=== PATIENT | female | born 1985 | race Asian ===

== ENCOUNTER 2023-11-06 08:39 | Emergency (ER) | payer OTHER, SELFPAY ==
[2023-11-06 08:40] VITALS: BP 115/76; PULSE 59; RESP 16; TEMP 36.4; O2SAT 98; BMI 23.6
--- NOTE | 2023-11-06 08:44 | ED.VIS.FEGU ---
HPI HPI - Female History of Present Illness Chief Complaint: Vag Bleeding Informant: patient Pain Pain: Positive for Pelvic Pain Onset: Days (4) Context: Gradual Onset Timing: Waxes and wanes Quality: Positive for Cramping Location: RLQ, LLQ and Suprapubic Worsened by: - (Palpation) Relieved by: - (Nothing) Bleeding Issue: Positive for Vaginal bleeding and Passing clots Onset: Days (8) Context: Gradual Onset Timing: Continuous Current Severity: Similar to period Maximum Severity: Similar to period Associated Symptoms Associated Symptoms: Negative for Dysuria or Frequency Narrative Narrative: Patient presents with vaginal bleeding that has been constant for the past 8 days. Patient states that is similar to her normal menstrual period. Patient states she is passing some small clots as well. Patient admits to some cramping over her lower abdomen. Patient states this has been constant for the past 4 days. Patient states her pain is worse with palpation over the lower abdomen. Patient states nothing makes it better. Patient denies any dysuria or frequency. Patient also admits to some breast tenderness. PFSH PFSH Medical History no medical history no medical history Allergy/AdvReac Type Severity Reaction Status Date / Time No Known Allergies Allergy Verified 11/06/23 09:06 Surgical History no surgical history no surgical history Social History Smoking Status: Never smoker ROS ROS ED Constitutional Constitutional ED: Denies chills or fever(s) Eyes Eyes: Denies blurry vision or change in vision ENT ENT ED: Reports rhinorrhea; Denies sore throat Cardiovascular Cardiovascular: Denies chest pain or palpitations Respiratory/Chest Respiratory/Chest: Denies cough or dyspnea Gastrointestinal Gastrointestinal: Reports abdominal pain; Denies nausea or vomiting Genitourinary Genitourinary ED: Denies dysuria or hematuria Musculoskeletal Musculoskeletal: Denies back pain or neck pain Integumentary Denies abscess or rash Neurologic Neurologic: Denies headache(s) or weakness Allergic/Immunologic Allergic/Immunologic ED: Denies mouth swelling or urticaria EXAM Physical Exam Const Vital Signs: 11/06/23 08:40 11/06/23 10:03 Temperature 97.5 F L Temperature Source Temporal Pulse Rate 59 L 65 Respiratory Rate 16 16 Blood Pressure 115/76 94/78 Blood Pressure Mean 89 83 Pulse Ox 98 96 Oxygen Delivery Method Room Air Room Air Positive well nourished and well developed General Appearance ED: well developed and NAD HEENT Reports moist mucous membranes Neck supple and no JVD Chest Wall inspection of chest normal and palpation of chest normal Resp normal respiratory effort and clear to auscultation bilaterally Cardio regular rate and regular rhythm GI soft to palpation and non-distended Palpation: tender LLQ, RLQ and suprapubic; Negative for guarding Neuro oriented x3, CN's II-XII intact bilaterally and no sensory deficits noted Sensorium / Orientation: alert Motor Exam: strength 5/5 throughout MDM MDM MDM Narrative Medical decision making narrative: Differential diagnosis includes , ectopic , dysmenorrhea, urinary tract infection, and anemia. CBC will be obtained to assess for leukocytosis and anemia. Basic metabolic profile will be obtained to assess for electrolyte abnormality and renal function. Urinalysis will be obtained to assess for urinary tract infection and hematuria. Serum hCG will be obtained to assess for . Lab Data Attestation: I reviewed the patient's lab results. Lab results narrative: CBC was reviewed and was within normal limits. Basic metabolic profile was reviewed and was within normal limits. Serum hCG was reviewed and was positive. Quantitative hCG was reviewed and was 158. Labs: Laboratory Results - last 24 hr 11/06/23 09:05 WBC 4.5 RBC 4.28 Hgb 12.4 Hct 38.6 MCV 90.2 MCH 29.0 MCHC 32.1 RDW Std Deviation 38.6 RDW Coeff of Rohan 11.8 Plt Count 247 MPV 9.1 Immature Gran % (Auto) 0.200 Neut % (Auto) 47.2 Lymph % (Auto) 29.6 Starke % (Auto) 6.5 Eos % (Auto) 15.6 H Baso % (Auto) 0.9 Absolute Neuts (auto) 2.1 Absolute Lymphs (auto) 1.33 Nucleated RBC % 0 Sodium 140 Potassium 3.7 Chloride 112 H Carbon Dioxide 25.0 Anion Gap 3 L BUN 16 Creatinine 0.50 L Estim Creat Clear Calc 148.35 Est GFR (MDRD) Af Amer 179 Est GFR (MDRD) Non-Af 148 BUN/Creatinine Ratio 32.3 H Glucose 90 Calcium 8.6 HCG, Quant 158 H Serum , Qual POSITIVE H Radiography Diagnostic Testing: Clinical Impression(s) from Imaging Studies Obstetrics Ultrasound 11/06/23 10:18 IMPRESSION: 1. No demonstrated IUP 2. Unremarkable pelvic structures. Electronically Signed: Jerald Roberts MD at 12:00 EST , Because of the vaginal bleeding and positive test, pelvic ultrasound was obtained to assess for ectopic . There is no demonstrated intrauterine . There is no ectopic noted. Treatment and Re-Evaluation Narrative: Patient was advised of her findings. Patient was advised that she is and very early in the . Patient was instructed to avoid any intercourse, tampons, and douching. Patient was instructed to have complete pelvic rest. Patient was given referral for [facility] follow-up. Patient was instructed to follow-up in 2 days. Patient understood and was agreeable with the plan. All questions were answered. Discharge Plan Triage Chief Complaint: Vag Bleeding ED Provider: Dheeraj Gomez Dx/Rx/DC Orders Clinical Impression: Threatened miscarriage, Threatened miscarriage in early Instructions: Miscarriage Threatened Primary Care Provider: Care Physician,Jacqui Primary Referrals: Candida Collier DO [Med Staff - Active Staff] - 2 Days NOT,DEFINED [Non-Staff] - Disposition Disposition: Home, Self Care
[2023-11-06] MEDS: 0.9% Normal Saline (1000mL) 1,000 ML 1000 ML IV (08:45)
[2023-11-06 09:26] LABS: Anion Gap 3 (5-15); BUN 16 mg/dL (7-18); BUN/Creat Ratio 32.3 RATIO (10-20); Calcium,Total 8.6 mg/dL (8.5-10.1); Chloride 112 mmol/L (98-107); EST Glomerular Filtration Rate 148 mL/min (>60); Est Glom Filt Rate - Afr Amer 179 mL/min (>60); Estimated Creatinine Clearance 148.35 ml/min; Glucose 90 mg/dL (74-106); Potassium 3.7 mmol/L (3.5-5.1); Sodium Level 140 mmol/L (136-145)
--- OUTSIDE RECORDS SUMMARY | 2023-11-06 09:27 | XMS RPT_ITS | CCD ---
Author Name Unknown Address [address] [place] [id number] Organization [facility] Care Team Providers Care Interpretive Program Coordinator Name Role Phone Unavailable Primary Care Provider Unavailabl e SELF, SELF Referring Unavailable JAKY TREVIÑO Attending Unavailable Medications Current Medications Medication Drug Class(es) Dates Sig (Normalized) Sig (Original) fluticasone propionate 0.05 mg/actuat metered dose nasal spray (1 source) Corticosteroid Start: 12-07-2022 fluticasone 50 MCG/ACT Suspension nasal spray Indications: Chronic rhinitis , Hypertrophy of inferior nasal turbinate , Nasal obstruction , Nasal drainage 2 sprays by Nasal route daily. 11.1 mL 11 12/07/2022 Active Problems Problem Classification Problem Date Documented Da te Episodic/Chronic Other upper respiratory disease (1 source) Chronic rhinitis; Translations: [Chronic rhinitis] Chronic Other upper respiratory disease (2 sources) Allergic rhinitis, unspecified; Translations: [Allergic rhinitis, unspecified] Onset: 12-07-2022 Chronic Other upper respiratory disease (1 source) Hypertrophy of nasal turbinates; Translations: [Hypertrophy of nasal turbinates] Episodic Other upper respiratory disease (1 source) Nasal obstruction; Translations: [Other specified disorders of nose and nasal sinuses] Episodic Other upper respiratory disease (1 source) Nasal discharge; Translations: [Other specified disorders of nose and nasal sinuses] Episodic Other upper respiratory disease (1 source) Deviated nasal septum; Translations: [Deviated nasal septum] Episodic Other upper respiratory infections (1 source) Chronic ethmoidal sinusitis; Translations: [Chronic ethmoidal sinusitis] Chronic Results Test Name Value Interpretation Reference Range Facil ity Vital Signs Date Time Vital Sign Value Performing Clinician Faci lity 12-07-2022 12:51-0400 Body height 170 cm Jaky Treviño MD Work Phone: [facility] 12-07-2022 12:51-0400 Body mass index (BMI) [Ratio] 22.6 kg/m2 Jaky Treviño MD Work Phone: [facility] 12-07-2022 12:51-0400 Body weight 65.32 kg Jaky Treviño MD Work Phone: [facility] 12-07-2022 12:51-0400 Heart rate 70 /min Jaky Treviño MD Work Phone: [facility] 12-07-2022 12:51-0400 SaO2% (BldA) [Mass fraction] 99 % Jaky Treviño MD Work Phone: [facility] Encounters Encounter Date Encounter Type Care Provider Facility Start: 12-07-2022 ambulatory SELF SELF Facility:[facility] Start: 12-07-2022 End: 12-07-2022 Office outpatient new 30 minutes Jaky Treviño MD Work Phone: [facility] [place] Plan of Treatment Date Care Activity Detail Author Start: 05-07-2023 Influenza vaccination INFLUENZ A VACCINE (Season Ended) [facility] Start: 01-11-2023 End: 01-11-2023 Patient encounter procedure [facility] [place] Start: 08-01-2021 COVID-19 VACCINE (3 - Booster for Pfizer series) COVID-19 VACCINE (3 - Booster for Pfizer series) [facility] Start: 2006 Screening for malign ant neoplasm of cervix CERVICAL CANCER SCREENING DISCUSSION [facility] Start: 2004 Third diphtheria, tetanus and acellular pertussis (DTaP) vaccination TDAP (ADULT) [facility] Start: 2000 HIV screening HIV SCREENING DISCUSSION [facility] Start: 1985 Hepatitis C screening HEPATITI S C VIRUS SCREENING [facility] Start: 1985 Tetanus vaccination TETANUS [facility] Nasal endoscopy diagnostic uni/bi spx [place] NASAL ENDOSCOPY,DX [place] Charge Routine Chronic rhinitis Hypertrophy of inferior nasal turbinate Nasal obstruction Nasal drainage Chronic ethmoidal sinusitis Nasal septal deviation Ordered: 12/07/2022 [facility] Work Phone: Payers Date Payer Category Payer Unknown [facility] [employer] [facility] [employer] [id number] 2022-Present [id number] [id number] 2022 Unknown [id number] 1985 Unknown [id number] Social History Date Type Detail Facility Start: 12-07-[address] [facility] Never smoked tobacco [facility] Start: 12-07-2022 Tobacco use and exposure Smokeless tobacco non-user [facility] Start: 1985 Sex Assigned At Not on file O [facility] Clinical Note 04-12-2023 Note Date & Type Note Facility 04-12-2023 Note Satisfactory For Lindy luation; Endocervical/Transformation Zone Component Absent. [facility] History of Present illness Narrative 12-07-2022 Gloria Gill MD - 12/07/2022 1:00 PM EDT Note Date & Type Note Facility 12-07-2022 History of Present illness Narrative Images from the original note were not included. Peggy De Leon is a 37 y.o. female who presents with the following chief complaint: Chief Complaint Patient presents with New Patient Cc: new pt c/o sinus issues, difficulty breathing and excess mucus History: Symptoms have been present for the past 4 months although she had milder symptoms previously. Never been tested for allergies but feels that symptoms get worse when the seasons change, especially fall and winter. Moved here two years ago from [facility], noted similar symptoms during the same seasons then. She is currently trying to get . 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 CHRONIC SINUSITIS SYMPTOMS (EPOS GUIDELINES): Nasal Obstruction / Congestion: yes Worse supine: yes Rhinorrhea: yes, occasionally purulent Post Nasal Drip:yes Decreased / Absent Sense of Smell: yes (decreases for 1-2 days when she's having exacerbation of sx, baseline is okay) Facial Pain / Headache: yes Location: R cheek Frequency: 1x/year Duration of headache per occurrence: 3-4 days ALLERGY HISTORY ____ No previous allergy testing Other Problems: NA Current Treatments Related to These Symptoms: Nasal saline spray Previous Medications Tried: Nasal saline sprays No past medical history on file. No past surgical history on file. No current outpatient medications on file. No Known Allergies No family history on file. Previous SINONASAL Surgical Treatment None Review of Systems Documented by ANNE-MARIE and reviewed today: yes Medical, Surgical, Medication, Allergy, Family, Social History Reviewed: yes EXAMINATION: Pulse 70 Ht 1.7 m (5' 6.93 ) Wt 65.3 kg (144 lb) SpO2 99% BMI 22.60 kg/m Smoking Status Never General: Well-developed Well-nourished Communication and Voice: Clear pitch and clarity Respiratory Respiratory effort: Equal inspiration and expiration without stridor or stertor Chest: symmetric chest movement bilaterally Cardiovascular Heart: regular rate and rhythm Peripheral Vascular: Warm extremities with equal pulses Eyes: No nystagmus with equal extraocular motion bilaterally PERRL Neuro/Psych/Balance: Patient oriented to person, place, and time; Appropriate mood and affect; Gait is intact with no imbalance; Cranial nerves II-XII are grossly intact Head and Face Inspection: Normocephalic and atraumatic without mass or lesion Palpation: Facial skeleton intact without bony stepoffs Salivary Glands: No mass or tenderness Facial Strength: Facial motility symmetric and full bilaterally ENT Pinna: External ear intact and fully developed External canal: Canal is patent with intact skin Tympanic Membrane: Clear and mobile External nose: No scar or anatomic deformity Internal Nose: Septum intact, + severe ITH mucosal edema with mucus gland hypertrophy Lips, Teeth, and gums: Mucosa and teeth intact and viable Oral cavity/oropharynx: No erythema or exudate with non-obstructive tonsils Neck Neck and Trachea: Midline trachea without mass or lesion Thyroid: No mass or nodularity Lymphatics: No lymphadenopathy S E S S M E N T 1. Septal deviation 2. Turbinate hypertrophy 3. Possible chronic rhinosinusitis 4. Chronic rhinitis, possible allergic rhinitis P L A N 1. Start flonase 2. Referral for allergy testing placed 3. Pt is trying to get , therefore would hold off on oral steroids at this time 4. Nasal saline rinses 4. Follow up with me in [address] to review symptoms Dr Treviño reviewed the H&P with the resident and edited the note where appropriate. She was present for the entire nasal endoscopy and counseled the patient. PROCEDURE NOTE Procedure: Bilateral Nasal Endoscopy Indication: Chronic sinusitis symptoms 473.9 Informed consent obtained. Entire procedure performed by Dr. Treviño Anesthesia: oxymetazoline & 1% lidocaine topical NASAL CAVITY INTERIOR Septum deviated yeson the right moderate Turbinate HTY: yes moderate No lesion or tumor Mucosa edematous with mucus gland hypertrophy throughout MIDDLE MEATUS: L side with polypoid edema, no pus. Right middle meatus with mild edema of uncinateMiddle turbinates are normal. SUPERIOR MEATUS: normal. SPHENOETHMOID RECESS: thick clear mucus, mild edema Nasopharynx: normal. Kana-Wally Staging Characteristic Right Left Polyp (0=absence; 1=polyps in MM; 2=beyond MM) 0 0 Edema (0=absent; 1=mild; 2=severe) 1 2 Discharge (0=none; 1=clear, thin; 2=thick,purulent) 1 1 Scarring (0=absent; 1=mild; 2=severe) 0 0 Crusting (0=absent; 1=mild; 2=severe) 0 0 Total score 2 3 documented in this encounter [facility] Instructions 12-07-2022 Patient Instructions Note Date & Type Note Facility 12-07-2022 Instructions Gloria Gill MD - 12/07/2022 1:00 PM EDT Images from the original note were not included. Jaky Treviño MD [facility] Department of Otolaryngology-Head & Neck Surgery Rhinology, Endoscopic Skull Base Surgery Instructions for Home Medication Use and Other Treatment Flonase (fluticasone) nasal spray Dose: 1-2 sprays each nare daily Note: decrease or stop use if you experience nose bleeds. [place] down and out using the opposite hand for the nare you are spraying. Allergy Referral. Make sure you refer to the intake form to determine if any medications need to be stopped prior to your visit. However, do not stop any blood pressure medications or any medications for other health disorders without approval from the prescribing physician. Examples include any medications you take for your heart or lung condition. IRRIGATE YOUR NOSE: Irrigation Kit If you do not have a bottle, you will need to pick up worker a kit that has a bottle & salt packets. This is available from the nasal section of any drug store. If you have a starter kit that I provided in clinic, you will still need to pick up worker a box of salt packets in order to have enough supply throughout the healing process. Please use distilled water from a drug or grocery store for irrigation. Fill the bottle with distilled water. One alternative is to use tap water that is first boiled and then cooled to a tolerable temperature. Open the salt packet and pour its contents into the bottle. Tighten the cap. Place one finger over the tip of the cap and mix to dissolve the salt. Lean over a sink and place the bottle up to your nostril. While holding your breath with your mouth open, squeeze the bottle, aiming towards the back of your head as shown in the picture. Some fluid may leak out of the other nostril or your mouth. Unless I have instructed you otherwise, you may gently blow out of BOTH nostrils after each squeeze (otherwise, do not blow your nose until I instruct you). Irrigate both nostrils back and forth until the bottle is gone. documented in this encounter [facility] Evaluation note Note Date & Type Note Facility documented in this encounter [facility] Reason for referral (narrative) Consultation (Routine) - New Request Note Date & Type Note Facility Referral ID Status Reason Start Date Expiration Date V isits Requested Visits Authorized [id number] New Request 12/07/2022 01/01/2024 1 1 [facility] Summary Purpose Family History No Family History Records Found Advance Directives No Advanced Directives Records Found Additional Source Comments Reason for Visit (unrecogniz ed section and content) INFORMATION SOURCE (unrecogn ized section and content) FOR RECORDS PERTAINING TO PATIENTS WHO ARE OR HAVE BEEN ENROLLED IN A CHEMICAL DEPENDENCY/SUBSTANCEABUSE PROGRAM, SOME INFORMATION MAY BE OMITTED. This clinical summary was aggregated from multiple sources. Caution should be exercised in using it in the provision of clinical care. This summary normalizes information from multiple sources, and as a consequence, information in this document may materially change the coding, format and clinical context of patient data. In addition, data may be omitted in some cases. CLINICAL DECISIONS SHOULD BE BASED ON THE PRIMARY CLINICAL RECORDS. [facility]. provides no warranty or guarantee of the accuracy or completeness of information in this document.
[2023-11-06 09:33] LABS: Absolute Lymphocyte Count 1.33 X10^3/uL (0.83-4.51); Absolute Neutrophil Count 2.1 X10^3/uL (2.0-7.7); Basophil# 0.04 X10^3/uL; Basophil% 0.9 % (0-1); Eosinophils% 15.6 % (0-5); Hematocrit 38.6 % (37-47); Hemoglobin 12.4 g/dL (12.0-15.0); Lymphocyte # 1.33 X10^3/ul (0.83-4.51); Lymphocyte % 29.6 % (19-41); Mean Corp Hgb Conc 32.1 g/dL (32-36); Mean Corpuscular Volume 90.2 fL (81-99); Mean Platelet Vol. 9.1 fl (6.2-12.0); Monocyte# 0.29 X10^3/uL; Monocyte% 6.5 % (0-10); NRBC Flagged by Analyzer 0 % (0-5); Neutrophil # 2.12 X10^3/uL (2.7-7.7); Neutrophil % 47.2 % (47-70); Platelet Count 247 K/mm3 (150-450); RBC Distribution Width CV 11.8 % (11.6-14.6); RBC Distribution Width SD 38.6 fl (35.1-43.9); Red Blood Count 4.28 M/mm3 (4.2-5.4); White Blood Count 4.5 K/mm3 (4.4-11.0)
[2023-11-06 09:39] LABS: Internal QC Validated? YES +Cl - CLEAR BKGD
[2023-11-06 09:40] LABS: Pregnancy, Serum, hCG Quali. POSITIVE Negative
[2023-11-06 10:03] VITALS: BP 94/78; PULSE 65; RESP 16; O2SAT 96
--- NOTE | 2023-11-06 10:18 | US_ITS ---
STUDY: FIRST TRIMESTER OBSTETRICAL ULTRASOUND REASON FOR EXAM: Female, 38 years old Vaginal bleeding LMP: Unknown. TECHNIQUE: Transabdominal and Transvaginal TECHNICAL QUALITY: Adequate. PRIOR ULTRASOUND: None. FINDINGS: There is no demonstrated intrauterine gestational sac. There is a visualized yolk sac. The placenta is non-visualized. There is no demonstrated embryo ( pole). The uterus measures 7.7 x 5.1 x 3.9 cm. There is no demonstrated uterine fibroid. The cervix is closed. The right ovary measures 2.9 x 1.4 x 0.9 cm. There is no right ovarian cyst. There is no visualized right adnexal mass or complex lesion. The left ovary measures 2.0 x 1.1 x 0.9 cm. There is no left ovarian cyst. There is no visualized left adnexal mass or complex lesion. There is no fluid in the cul de sac. US/Transvaginal w/Preg US IMPRESSION: 1. No demonstrated IUP 2. Unremarkable pelvic structures. Electronically Signed: Jerald Roberts MD at 12:00 EST Reading Location ID and State: [facility] / MD , Service support ,
[2023-11-06 10:37] LABS: hCG Titer Quant., Serum 158 mIU/mL (1-3)
[2023-11-06 12:32] VITALS: BP 117/98; PULSE 81; RESP 18; TEMP 36.8; O2SAT 98
== END 2023-11-06 12:34 | disposition home or self-care (01) ==
PROVIDERS: Emergency Provider Emergency Medicine; Visit Provider Emergency Medicine
DX: O20.0 Threatened abortion (principal); Z3A.00 Weeks of gestation of pregnancy not specified
CPT/HCPCS: 76817; 80048; 84702; 84703; 85025; 96360; 99283; J7030

== ENCOUNTER → 2023-11-13 | Outpatient (CLI) | payer OTHER, SELFPAY ==
--- OUTSIDE RECORDS SUMMARY | 2023-11-13 08:19 | XMS RPT_ITS | CCD ---
Author Name Unknown Address [address] [place] [id number] Organization [facility] Care Team Providers Care Firearms Model Maker Name Role Phone Unavailable Primary Care Provider [...] 170 cm Jaky Treviño MD Work Phone: [facility] 12-07-2022 12:51-0400 Body mass index (BMI) [Ratio] 22.6 kg/m2 Jaky Treviño MD Work Phone: [facility] 12-07-2022 12:51-0400 Body weight 65.32 kg Jaky Treviño MD Work Phone: [facility] 12-07-2022 12:51-0400 Heart rate 70 /min Jaky Treviño MD Work Phone: [facility] 12-07-2022 12:51-0400 SaO2% (BldA) [Mass fraction] 99 % Jaky Treviño MD Work Phone: [facility] Encounters Encounter Date Encounter Type Care Provider Facility Start: 12-07-2022 ambulatory SELF SELF Facility:[facility] Start: 12-07-2022 End: 12-07-2022 Office outpatient new 30 minutes Jaky Treviño MD Work Phone: [facility] [place] Plan of Treatment Date Care Activity Detail Author Start: 05-07-2023 Influenza vaccination INFLUENZ A VACCINE (Season Ended) [facility] Start: 01-11-2023 End: 01-11-2023 Patient encounter procedure [facility] [place] Start: 08-01-2021 COVID-19 VACCINE (3 - Booster for Pfizer series) COVID-19 VACCINE (3 - Booster for Pfizer series) [facility] Start: 2006 Screening for malign ant neoplasm of cervix CERVICAL CANCER SCREENING DISCUSSION [facility] Start: 2004 Third diphtheria, tetanus and acellular pertussis (DTaP) vaccination TDAP (ADULT) [facility] Start: 2000 HIV screening HIV SCREENING DISCUSSION [facility] Start: 1985 Hepatitis C screening HEPATITI S C VIRUS SCREENING [facility] Start: 1985 Tetanus vaccination TETANUS [facility] Nasal endoscopy diagnostic uni/bi spx SD NASAL ENDOSCOPY,DX SD Charge Routine Chronic rhinitis Hypertrophy of inferior nasal turbinate Nasal obstruction Nasal drainage Chronic ethmoidal sinusitis Nasal septal deviation Ordered: 12/07/2022 [facility] Work Phone: Payers Date Payer Category Payer Unknown [facility] STUDENT HEAL TH [facility] STUDENT HEALTH [id number] 2022-Present [phone] [id number] 2022 Unknown [id number] 1985 Unknown [id number] Social History Date Type Detail Facility Start: 12-07-2022 Tobacco smoking stat [facility] Never smoked tobacco [facility] Start: 12-07-2022 Tobacco use and exposure Smokeless tobacco non-user [facility] Start: 1985 Sex Assigned At Not on file O [facility] Clinical Note 04-12-2023 Note Date & Type Note Facility 04-12-2023 Note Satisfactory For Lindy luation; Endocervical/Transformation Zone Component Absent. [facility] History of Present illness Narrative 12-07-2022 Gloria [...] winter. Moved here two years ago from [facility], noted similar symptoms during the same [...] 2 3 documented in this encounter [facility] Instructions 12-07-2022 Patient Instructions Note Date & Type Note Facility 12-07-2022 Instructions Gloria Gill MD - 12/07/2022 1:00 PM EDT Images from the original note were not included. Jaky Treviño MD [facility] Department of Otolaryngology-Head & Neck Surgery Rhinology, Endoscopic Skull Base Surgery Instructions for Home Medication Use and Other Treatment Flonase (fluticasone) nasal spray Dose: 1-2 sprays each nare daily Note: decrease or stop use if you experience nose bleeds. [place] down and out using the opposite hand [...] have a bottle, you will need to potato picker a kit that has a bottle & salt packets. This is available from the nasal section of any drug store. If you have a starter kit that I provided in clinic, you will still need to potato picker a box of salt packets in order [...] bottle is gone. documented in this encounter [facility] Evaluation note Note Date & Type Note Facility documented in this encounter [facility] Reason for referral (narrative) Consultation (Routine) - New Request Note Date & Type Note Facility Referral ID Status Reason Start Date Expiration Date V isits Requested Visits Authorized [id number] New Request 12/07/2022 01/01/2024 1 1 [facility] Summary Purpose Family History No Family [...] BE BASED ON THE PRIMARY CLINICAL RECORDS. [facility]. provides no warranty or guarantee of the accuracy or completeness of information in this document.
[2023-11-13 09:02] LABS: hCG Titer Quant., Serum 229 mIU/mL (1-3)
== END | disposition home or self-care (01) ==
PROVIDERS: Referring Provider Obstetrics & Gynecology; Visit Provider Obstetrics & Gynecology
DX: O20.0 Threatened abortion (principal); Z3A.00 Weeks of gestation of pregnancy not specified
CPT/HCPCS: 36415; 84702

== ENCOUNTER 2023-11-15 16:25 | Emergency (ER) | payer OTHER, SELFPAY ==
[2023-11-15 16:26] VITALS: BP 118/85; PULSE 82; RESP 14; TEMP 36.4; O2SAT 97; BMI 24.2
--- NOTE | 2023-11-15 16:52 | ED.VIS.FEGU ---
HPI <Maribel Massey RN - Last Filed: 11/15/23 17:52> HPI - Female History of Present Illness Chief Complaint: Vag Bld, Preg Informant: patient Bleeding Issue: Positive for Vaginal bleeding; Negative for Passing clots or Passing tissue Onset: Weeks (2) Context: Sudden Onset Timing: Continuous Current Severity: Spotting (Bright red, no clots, uses 2 pads per day) Maximum Severity: Spotting Associated Symptoms Associated Symptoms: Negative for Dysuria, Frequency, Urgency or Hematuria Last known menstrual period: 09/30/2023 Test: Positive Sexually: Positive for Active P: 0 Narrative Narrative: Patient is a 38-year-old female with no past medical history who presents to the ED after brief referral from [facility]. Patient is currently . Last menstrual period was 09/30/2023. She reports she began with bright red vaginal bleeding at the end of October. She denies passing clots. She does report she uses 2 pads per day. She denies lightheadedness, nausea, vomiting, and diarrhea. She was seen at Dr. Rhodes's office today where a transvaginal ultrasound was completed. Patient reports they did not visualize an embryo in the uterus. However, she is unable to state if they visualized an ectopic . She does report that Dr. Rhodes has told her she has an ectopic . She was referred here for methotrexate. Patient reports knowing that the medication will prevent the proliferation of cells but has concerns that she could still have a viable and this medication will cause an . The patient also reports her hCG has been low. Patient was seen in the ED on 11/06/2023 for vaginal bleeding. At that time her hCG was 158. On 11/13/2023 her hCG was 229. Today it was 233. An ultrasound on 11/06/2023 indicated no intrauterine gestational sac. Patient denies dysuria, hematuria, and urinary frequency. She denies fevers or chills. Prior similar symptoms: No Recent Illness/Hospitalization: No PFSH <Maribel Massey RN - Last Filed: 11/15/23 17:52> PFSH Medical History no medical history no medical history Home Medications NK 11/15/23 [History Last Taken Unknown] Allergy/AdvReac Type Severity Reaction Status Date / Time No Known Allergies Allergy Verified 11/15/23 16:30 Family History no significant family his no significant family history Surgical History no surgical history no surgical history Social History (Updated 11/15/23 @ 13:38 by Clari Diaz MA) adopted: No household members: spouse current occupational status: employed current occupation: [employer] current occupational exposures/hazards: Yes pets and animals: Yes history of recent travel: No sexually active: Yes Smoking Status: Never smoker second hand exposure: No alcohol intake: never substance use type: does not use caffeine: Yes seatbelt use: always do you feel safe at home: Yes additional social history: Ashish MAGALLANES <Maribel Massey RN - Last Filed: 11/15/23 17:52> ROS ED ROS Narrative . Constitutional Constitutional ED: Denies chills, fever(s) or sweats Cardiovascular Cardiovascular: Denies chest pain or palpitations Respiratory/Chest Respiratory/Chest: Denies cough, dyspnea or dyspnea on exertion Gastrointestinal Gastrointestinal: Denies abdominal pain, constipation, diarrhea, nausea or vomiting Genitourinary Genitourinary ED: Denies dysuria, hematuria or urinary frequency Musculoskeletal Musculoskeletal: Denies arthralgias or myalgias Integumentary Denies rash Neurologic Neurologic: Denies headache(s), paresthesias or weakness Psychiatric Psychiatric: Reports anxiety; Denies depression Hematologic/Lymphatic Hematologic/Lymphatic: Denies easy bleeding or easy bruising EXAM <Maribel Massey RN - Last Filed: 11/15/23 17:52> Physical Exam Narrative Exam Narrative: Patient is awake and alert, well-kept, tearful Const Vital Signs: 11/15/23 16:26 11/15/23 18:11 Temperature 97.6 F L 97.6 F L Temperature Source Temporal Pulse Rate 82 80 Respiratory Rate 14 16 Blood Pressure 118/85 H 115/80 Blood Pressure Mean 96 91 Pulse Ox 97 98 Oxygen Delivery Method Room Air Positive well nourished and well developed General Appearance ED: well developed and NAD Eyes PERRL Neck no lymphadenopathy, supple and no JVD Chest Wall inspection of chest normal and palpation of chest normal Resp normal respiratory effort and clear to auscultation bilaterally Resp Narrative: Symmetrical chest rise Auscultation: Negative for rales, rhonchi or wheezes Cardio regular rate, regular rhythm, S1 normal heart sound, no murmurs and no JVD GI normal to inspection, nondistended, normoactive bowel sounds, soft to palpation, non-tender and non-distended Auscultation: normoactive bowel sounds Palpation: Negative for tender Back/Spine no CVA tenderness Extremity normal to inspection and full ROM Extremity Narrative: Steady gait General Extremety ED: Negative for edema General Extremity: Negative for edema Neuro oriented x3 Sensorium / Orientation: alert Motor Exam: strength 5/5 throughout Psych mental status grossly normal Mood & Affect: anxious and tearful Skin no rashes or lesions noted and no wounds <Dr. Candida Gibson MD - Last Filed: 11/15/23 19:12> Physical Exam Const Vital Signs: 11/15/23 16:26 11/15/23 18:11 Temperature 97.6 F L 97.6 F L Temperature Source Temporal Pulse Rate 82 80 Respiratory Rate 14 16 Blood Pressure 118/85 H 115/80 Blood Pressure Mean 96 91 Pulse Ox 97 98 Oxygen Delivery Method Room Air MDM <Maribel Massey RN - Last Filed: 11/15/23 17:52> MDM MDM Narrative Medical decision making narrative: IV line initiated. Orders placed by Dr. Rhodes for CBC and BMP. Patient educated on the purpose and side effects of methotrexate. Dr. Rhodes paged regarding patient concerns of having viable and methotrexate inducing an . She will come to the unit to speak to the patient. History & Record Review Discussion w/independent historian: Patient Lab Data Labs: Laboratory Results - last 24 hr 11/15/23 11/15/23 16:47 16:50 WBC 7.4 RBC 4.30 Hgb 12.6 Hct 38.8 MCV 90.2 MCH 29.3 MCHC 32.5 RDW Std Deviation 38.5 RDW Coeff of Rohan 11.7 Plt Count 287 MPV 8.9 Sodium 140 Potassium 3.8 Chloride 107 Carbon Dioxide 26.0 Anion Gap 7 BUN 17 Creatinine 0.70 Estim Creat Clear Calc 105.97 Est GFR (MDRD) Af Amer 120 Est GFR (MDRD) Non-Af 99 BUN/Creatinine Ratio 24.2 H Glucose 116 H Calcium 9.1 Total Bilirubin 0.30 AST 15 ALT 23 Alkaline Phosphatase 77 Total Protein 7.8 Albumin 3.9 Globulin 3.9 Albumin/Globulin Ratio 1.0 Differential Diagnosis Differential Diagnosis: Ectopic Differential Diagnosis: Threatened miscarriage Management Discussion w/another healthcare provider: Other (Dr. Gibson, ED provider) Treatment and Re-Evaluation Narrative: Lab work reviewed. CBC is unremarkable with a normal white blood cell count of 7.4, hemoglobin normal at 12.6, and platelets normal at 287. Chemistry unremarkable with the exception of a slightly elevated glucose at 116. Liver enzymes unremarkable. Dr. Rhodes came to the unit to speak more with the patient regarding the purpose and side effects of methotrexate. Patient was agreeable to methotrexate. After confirming patient agreeable to admission of methotrexate and side effects, methotrexate administered IM in 2 divided doses and bilateral ventral gluteal sites. Patient tolerated well. Patient to follow-up with Dr. Rhodes in 1 week. Patient to be discharged home. <Dr. Candida Gibson MD - Last Filed: 11/15/23 19:12> [facility] Lab Data Attestation: I reviewed the patient's lab results. Labs: Laboratory Results - last 24 hr 11/15/23 11/15/23 16:47 16:50 WBC 7.4 RBC 4.30 Hgb 12.6 Hct 38.8 MCV 90.2 MCH 29.3 MCHC 32.5 RDW Std Deviation 38.5 RDW Coeff of Rohan 11.7 Plt Count 287 MPV 8.9 Sodium 140 Potassium 3.8 Chloride 107 Carbon Dioxide 26.0 Anion Gap 7 BUN 17 Creatinine 0.70 Estim Creat Clear Calc 105.97 Est GFR (MDRD) Af Amer 120 Est GFR (MDRD) Non-Af 99 BUN/Creatinine Ratio 24.2 H Glucose 116 H Calcium 9.1 Total Bilirubin 0.30 AST 15 ALT 23 Alkaline Phosphatase 77 Total Protein 7.8 Albumin 3.9 Globulin 3.9 Albumin/Globulin Ratio 1.0 Treatment and Re-Evaluation Narrative: Lab work reviewed. CBC is unremarkable with a normal white blood cell count of 7.4, hemoglobin normal at 12.6, and platelets normal at 287. Chemistry unremarkable with the exception of a slightly elevated glucose at 116. Liver enzymes unremarkable. Dr. Rhodes came to the unit to speak more with the patient regarding the purpose and side effects of methotrexate. Patient was agreeable to methotrexate. After confirming patient agreeable to admission of methotrexate and side effects, methotrexate administered IM in 2 divided doses and bilateral ventral gluteal sites. Patient tolerated well. Patient to follow-up with Dr. Rhodes in 1 week. Patient to be discharged home. Patient seen and evaluated with AP student Luz Carmen personally interviewed and examined the patient. I was involved in all aspects of patient's orders, interpretation of results, and treatment. Patient presents to ED due to concern for ectopic . Patient was seen in the ER recently and had a positive test but nothing seen on pelvic ultrasound. She has followed up with OB office and her quant's are not increasing sufficiently. She reportedly had a ultrasound in the office today that did not show any evidence of . I spoke with Dr. Rhodes who stated that she would put orders in for lab work and methotrexate if we could initiate that here for her. On arrival patient is intermittently tearful. She still questions whether she needs to have methotrexate and whether this could possibly be a viable . Heart is regular rate and rhythm. Lung sounds are clear. Abdomen is soft with no focal tenderness. No guarding or rebound. CBC and CMP obtained and largely unremarkable. I did speak with [facility] again and Dr. Rhodes presented to the emergency room to speak with the patient. She is in agreement with completing the methotrexate injections. This was performed and patient discharged home for close follow-up. Discharge Plan Triage Chief Complaint: Vag Bld, Preg Other Complaint: Female C/O ED Provider: Candida Gibson Dx/Rx/DC Orders Clinical Impression: Ectopic Instructions: ED Methotrexate for Ectopic ... Prescriptions: No Action NK Primary Care Provider: Care Physician,No Primary Referrals: Care Physician,No Primary [Primary Care Provider] - Activity Restrictions/Additional Instructions: Follow-up with Dr. Rhodes per her instructions. Call Dr. Rhodes or return to ED if heavy vaginal bleeding using more than 1 pad per hour. Disposition Disposition: Home, Self Care Discharge Date/Time: 11/15/23 18:12
[2023-11-15 16:59] LABS: Hematocrit 38.8 % (37-47); Hemoglobin 12.6 g/dL (12.0-15.0); Mean Corp Hgb Conc 32.5 g/dL (32-36); Mean Corpuscular Hgb 29.3 pg (27.0-32.0); Mean Corpuscular Volume 90.2 fL (81-99); Mean Platelet Vol. 8.9 fl (6.2-12.0); Platelet Count 287 K/mm3 (150-450); RBC Distribution Width CV 11.7 % (11.6-14.6); RBC Distribution Width SD 38.5 fl (35.1-43.9); White Blood Count 7.4 K/mm3 (4.4-11.0)
[2023-11-15 17:04] LABS: Scan Indicated on CBC? Y/N NO
[2023-11-15 17:37] LABS: AST(SGOT) 15 U/L (15-37); Alanine Aminotransfer ALT/SGPT 23 U/L (13-56); Albumin, Serum 3.9 g/dL (3.2-5.0); Alkaline Phosphatase 77 U/L (45-117); Anion Gap 7 (5-15); BUN 17 mg/dL (7-18); BUN/Creat Ratio 24.2 RATIO (10-20); Calcium,Total 9.1 mg/dL (8.5-10.1); Chloride 107 mmol/L (98-107); EST Glomerular Filtration Rate 99 mL/min (>60); Est Glom Filt Rate - Afr Amer 120 mL/min (>60); Estimated Creatinine Clearance 105.97 ml/min; Globulin 3.9 g/dL (2.2-4.2); Glucose 116 mg/dL (74-106); Potassium 3.8 mmol/L (3.5-5.1); Protein, Total 7.8 g/dL (6.4-8.2); Sodium Level 140 mmol/L (136-145)
[2023-11-15] MEDS: METHOTREXATE IM (17:46)
[2023-11-15 18:11] VITALS: BP 115/80; PULSE 80; RESP 16; TEMP 36.4; O2SAT 98
--- OUTSIDE RECORDS SUMMARY | 2023-11-15 21:28 | XMS RPT_ITS | CCD ---
Author Name Unknown Address [address] [place] [address] Organization [facility] Care Team Providers Care Wall To Wall Carpet Installer Name Role Phone Unavailable Primary Care Provider [...] 170 cm Jaky Treviño MD Work Phone: [facility] 12-07-2022 12:51-0400 Body mass index (BMI) [Ratio] 22.6 kg/m2 Jaky Treviño MD Work Phone: [facility] 12-07-2022 12:51-0400 Body weight 65.32 kg Jaky Treviño MD Work Phone: [facility] 12-07-2022 12:51-0400 Heart rate 70 /min Jaky Treviño MD Work Phone: [facility] 12-07-2022 12:51-0400 SaO2% (BldA) [Mass fraction] 99 % Jaky Treviño MD Work Phone: [facility] Encounters Encounter Date Encounter Type Care Provider Facility Start: 12-07-2022 ambulatory SELF SELF Facility:[facility] Start: 12-07-2022 End: 12-07-2022 Office outpatient new 30 minutes Jaky Treviño MD Work Phone: [facility] [place] Plan of Treatment Date Care Activity Detail Author Start: 05-07-2023 Influenza vaccination INFLUENZ A VACCINE (Season Ended) [facility] Start: 01-11-2023 End: 01-11-2023 Patient encounter procedure [facility] [place] Start: 08-01-2021 COVID-19 VACCINE (3 - Booster for Pfizer series) COVID-19 VACCINE (3 - Booster for Pfizer series) [facility] Start: 2006 Screening for malign ant neoplasm of cervix CERVICAL CANCER SCREENING DISCUSSION [facility] Start: 2004 Third diphtheria, tetanus and acellular pertussis (DTaP) vaccination TDAP (ADULT) [facility] Start: 2000 HIV screening HIV SCREENING DISCUSSION [facility] Start: 1985 Hepatitis C screening HEPATITI S C VIRUS SCREENING [facility] Start: 1985 Tetanus vaccination TETANUS [facility] Nasal endoscopy diagnostic uni/bi spx DC NASAL ENDOSCOPY,DX DC Charge Routine Chronic rhinitis Hypertrophy of inferior nasal turbinate Nasal obstruction Nasal drainage Chronic ethmoidal sinusitis Nasal septal deviation Ordered: 12/07/2022 [facility] Work Phone: Payers Date Payer Category Payer Unknown [facility] STUDENT HEAL TH [facility] STUDENT HEALTH [id number] 2022-Present [id number] [id number] 2022 Unknown [id number] 1985 Unknown [id number] Social History Date Type Detail Facility Start: 12-07-2022 Tobacco smoking stat [facility] Never smoked tobacco [facility] Start: 12-07-2022 Tobacco use and exposure Smokeless tobacco non-user [facility] Start: 1985 Sex Assigned At Not on file O [facility] Clinical Note 04-12-2023 Note Date & Type Note Facility 04-12-2023 Note Satisfactory For Lindy luation; Endocervical/Transformation Zone Component Absent. [facility] History of Present illness Narrative 12-07-2022 [...] thick clear mucus, mild edema Nasopharynx: normal. Glade-Wally Staging Characteristic Right Left Polyp (0=absence; 1=polyps in MM; 2=beyond MM) 0 0 Edema (0=absent; 1=mild; 2=severe) 1 2 Discharge (0=none; 1=clear, thin; 2=thick,purulent) 1 1 Scarring (0=absent; 1=mild; 2=severe) 0 0 Crusting (0=absent; 1=mild; 2=severe) 0 0 Total score 2 3 documented in this encounter [facility] Instructions 12-07-2022 Patient Instructions Note Date & Type Note Facility 12-07-2022 Instructions Gloria Gill MD - 12/07/2022 1:00 PM EDT Images from the original note were not included. Jaky Treviño MD [facility] Department of Otolaryngology-Head & Neck Surgery Rhinology, Endoscopic Skull Base Surgery Instructions for Home Medication Use and Other Treatment Flonase (fluticasone) nasal spray Dose: 1-2 sprays each nare daily Note: decrease or stop use if you experience nose bleeds. [place] down and out using the opposite hand [...] have a bottle, you will need to pickers material handlers a kit that has a bottle & salt packets. This is available from the nasal section of any drug store. If you have a starter kit that I provided in clinic, you will still need to pickers material handlers a box of salt packets in order [...] bottle is gone. documented in this encounter [facility] Evaluation note Note Date & Type Note Facility documented in this encounter [facility] Reason for referral (narrative) Consultation (Routine) - New Request Note Date & Type Note Facility Referral ID Status Reason Start Date Expiration Date V isits Requested Visits Authorized [id number] New Request 12/07/2022 01/01/2024 1 1 [facility] Summary Purpose Family History No Family History [...] BE BASED ON THE PRIMARY CLINICAL RECORDS. [employer] [facility]. provides no warranty or guarantee of the accuracy or completeness of information in this document.
== END 2023-11-15 18:12 | disposition home or self-care (01) ==
PROVIDERS: Obstetrics & Gynecology; Emergency Provider Emergency Medicine; Visit Provider Emergency Medicine
DX: O00.90 Unspecified ectopic pregnancy without intrauterine pregnancy (principal)
CPT/HCPCS: 80053; 85027; 96372; 99282; A4216; J9250

== ENCOUNTER → 2023-11-15 | Outpatient (CLI) | payer OTHER, SELFPAY ==
[2023-11-15 15:05] LABS: hCG Titer Quant., Serum 233 mIU/mL (1-3)
== END | disposition home or self-care (01) ==
PROVIDERS: Referring Provider Registered Nurse; Visit Provider Registered Nurse
DX: O20.0 Threatened abortion (principal); Z3A.00 Weeks of gestation of pregnancy not specified
CPT/HCPCS: 36415; 84702

== ENCOUNTER → 2023-11-20 | Outpatient (CLI) | payer OTHER, SELFPAY ==
--- OUTSIDE RECORDS SUMMARY | 2023-11-20 10:18 | XMS RPT_ITS | CCD ---
Author Name Unknown Address [address] [place] [id number] Organization [facility] Care Team Providers Care Ride Attendant Name Role Phone Unavailable Primary Care Provider [...] Jaky Treviño MD Work Phone: [facility] 12-07-2022 12:51-0400 Body mass index (BMI) [Ratio] 22.6 kg/m2 Jaky Treviño MD Work Phone: [facility] 12-07-2022 12:51-0400 Body weight 65.32 kg Jaky Treviño MD Work Phone: [facility] 12-07-2022 12:51-0400 Heart rate 70 /min Jaky Treviño MD Work Phone: [facility] 12-07-2022 12:51-0400 SaO2% (BldA) [Mass fraction] 99 % Jaky Treviño MD Work Phone: [facility] Encounters Encounter Date Encounter Type Care Provider Facility Start: 12-07-2022 ambulatory SELF SELF Facility:[facility] Start: 12-07-2022 End: 12-07-2022 Office outpatient new 30 minutes Jaky Treviño MD Work Phone: [facility] Plan of Treatment Date Care Activity Detail Author Start: 05-07-2023 Influenza vaccination INFLUENZ A VACCINE (Season Ended) [facility] Start: 01-11-2023 End: 01-11-2023 Patient encounter procedure [facility] Start: 08-01-2021 COVID-19 VACCINE (3 - Booster for Pfizer series) COVID-19 VACCINE (3 - Booster for Pfizer series) [facility] Start: 2006 Screening for malign ant neoplasm of cervix CERVICAL CANCER SCREENING DISCUSSION [facility] Start: 2004 Third diphtheria, tetanus and acellular pertussis (DTaP) vaccination TDAP (ADULT) [facility] Start: 2000 HIV screening HIV SCREENING DISCUSSION [facility] Start: 1985 Hepatitis C screening HEPATITI S C VIRUS SCREENING [facility] Start: 1985 Tetanus vaccination TETANUS [facility] Nasal endoscopy diagnostic uni/bi spx [place] NASAL ENDOSCOPY,DX [place] Charge Routine Chronic rhinitis Hypertrophy of inferior nasal turbinate Nasal obstruction Nasal drainage Chronic ethmoidal sinusitis Nasal septal deviation Ordered: 12/07/2022 [facility] Work Phone: Payers Date Payer Category Payer Unknown [facility] [employer] [facility] [employer] [id number] 2022-Present [id number] [id number] 2022 Unknown [id number] 1985 Unknown [id number] Social History Date Type Detail Facility Start: 12-07-2022 Tobacco smoking stat [facility] Never smoked tobacco [facility] Start: 12-07-2022 Tobacco use and exposure Smokeless tobacco non-user [facility] Start: 1985 Sex Assigned At Not on file [facility] Clinical Note 04-12-2023 Note Date & Type Note Facility 04-12-2023 Note Satisfactory For Lindy luation; Endocervical/Transformation Zone Component Absent. [facility] History of Present illness Narrative 12-07-2022 [...] winter. Moved here two years ago from [facility], noted similar symptoms during the same seasons [...] thick clear mucus, mild edema Nasopharynx: normal. [facility] Staging Characteristic Right Left Polyp (0=absence; 1=polyps in MM; 2=beyond MM) 0 0 Edema (0=absent; 1=mild; 2=severe) 1 2 Discharge (0=none; 1=clear, thin; 2=thick,purulent) 1 1 Scarring (0=absent; 1=mild; 2=severe) 0 0 Crusting (0=absent; 1=mild; 2=severe) 0 0 Total score 2 3 documented in this encounter [facility] Instructions 12-07-2022 Patient Instructions Note Date & Type Note Facility 12-07-2022 Instructions Gloria Gill MD - 12/07/2022 1:00 PM EDT Images from the original note were not included. Jaky Treviño MD [facility] Department of Otolaryngology-Head & Neck Surgery Rhinology, Endoscopic Skull Base Surgery Instructions for Home Medication Use and Other Treatment Flonase (fluticasone) nasal spray Dose: 1-2 sprays each nare daily Note: decrease or stop use if you experience nose bleeds. Jber down and out using the opposite hand [...] have a bottle, you will need to leaf size picker a kit that has a bottle & salt packets. This is available from the nasal section of any drug store. If you have a starter kit that I provided in clinic, you will still need to leaf size picker a box of salt packets in [...] gone. documented in this encounter [facility] Evaluation note Note Date & Type Note Facility documented in this encounter [facility] Reason for referral (narrative) Consultation (Routine) - New Request Note Date & Type Note Facility Referral ID Status Reason Start Date Expiration Date V isits Requested Visits Authorized [id number] New Request 12/07/2022 01/01/2024 1 1 [facility] Summary Purpose Family History No Family History [...] BE BASED ON THE PRIMARY CLINICAL RECORDS. [facility] provides no warranty or guarantee of the accuracy or completeness of information in this document.
[2023-11-20 11:19] LABS: hCG Titer Quant., Serum 194 mIU/mL (1-3)
== END | disposition home or self-care (01) ==
LOC: LAB 10:16
PROVIDERS: Referring Provider Obstetrics & Gynecology; Visit Provider Obstetrics & Gynecology
DX: O09.90 Supervision of high risk pregnancy, unspecified, unspecified trimester (principal); Z3A.00 Weeks of gestation of pregnancy not specified
CPT/HCPCS: 36415; 84702

== ENCOUNTER → 2023-11-27 | Outpatient (CLI) | payer OTHER, SELFPAY ==
[2023-11-27 11:42] LABS: hCG Titer Quant., Serum 136 mIU/mL (1-3)
== END | disposition home or self-care (01) ==
LOC: LAB 10:15
PROVIDERS: Referring Provider Obstetrics & Gynecology; Visit Provider Obstetrics & Gynecology
DX: O09.90 Supervision of high risk pregnancy, unspecified, unspecified trimester (principal); Z3A.00 Weeks of gestation of pregnancy not specified
CPT/HCPCS: 36415; 84702

== ENCOUNTER → 2023-12-04 | Outpatient (CLI) | payer OTHER, SELFPAY ==
[2023-12-04 10:26] LABS: hCG Titer Quant., Serum 52 mIU/mL (1-3)
== END | disposition home or self-care (01) ==
LOC: LAB 09:02
PROVIDERS: Referring Provider Obstetrics & Gynecology; Visit Provider Obstetrics & Gynecology
DX: O00.90 Unspecified ectopic pregnancy without intrauterine pregnancy (principal)
CPT/HCPCS: 36415; 84702

== ENCOUNTER → 2023-12-18 | Outpatient (CLI) | payer OTHER, SELFPAY ==
[2023-12-18 10:26] LABS: hCG Titer Quant., Serum < 1 mIU/mL (1-3)
== END | disposition home or self-care (01) ==
PROVIDERS: Referring Provider Registered Nurse; Visit Provider Registered Nurse
DX: O00.90 Unspecified ectopic pregnancy without intrauterine pregnancy (principal)
CPT/HCPCS: 36415; 84702

== ENCOUNTER 2024-01-07 11:34 | Outpatient (CLI) | payer OTHER, SELFPAY | END 2024-01-07 23:59 | disposition home or self-care (01) | PROVIDERS: Referring Provider Registered Nurse; Visit Provider Registered Nurse | DX: N97.9 Female infertility, unspecified (principal) | CPT/HCPCS: 58340; 74740; Q9967 ==